=== PATIENT | male | born 1975 | race Caucasian/White ===

== ENCOUNTER 2021-11-23 11:10 | Emergency (ER) | payer OTHER, SELFPAY ==
[2021-11-23 11:13] VITALS: BP 177/114; PULSE 90; RESP 14; TEMP 36.9; O2SAT 100; BMI 28.2
--- NOTE | 2021-11-23 11:17 | ED_ITS ---
HPI - Fall General Chief Complaint: Fall Stated Complaint: Fell off [employer] Truck a day ago Time Seen by Provider: 11/23/21 11:16 Source: patient Mode of arrival: Ambulatory History of Present Illness HPI Narrative: 46-year-old gentleman with a history of C 4 5 and 5 6 surgery in the fall of 2020, partial colectomy with a history of familial polyposis presents complaining of upper neck and head pain. Yesterday he was helping some friends move and was caring a couch down the ramp out of the [employer] truck. He step to the side and got caught between the edge of the garage and the couch with the majority of his pain mid scapula but radiating up toward his neck and reports his head flipping back and forth hitting over the occiput. There was no loss of consciousness any was able to move without difficulty afterward. He took some Tylenol last night and this morning when he woke up the pain was significant enough that he had an episode of emesis and his friends brought him in for further evaluation. He reports no neurologic complaints, dizziness, ataxia, clumsiness with fine motor skills, no significant headache. The majority of his pain is with bilateral trapezius muscle spasm and in upper thoracic area. After the episode of emesis his nausea has significantly improved but is still slightly notable, no diarrhea no abdominal pain. No chest pain, palpitations or dyspnea. Related Data Previous Rx's Medication Instructions Recorded ondansetron 4 mg disintegrating 4 mg PO Q8H PRN #14 tab 11/23/21 tablet oxycodone-acetaminophen 5 mg-325 1 tab PO Q6H PRN #14 tab 11/23/21 mg tablet Allergies Allergy/AdvReac Type Severity Reaction Status Date / Time NSAIDS (Non-Steroidal Allergy Severe Rash Verified 11/23/21 11:18 Anti-Inflamma tramadol [From Ultram] Allergy Severe Anaphylaxis Verified 11/23/21 11:18 promethazine [From Phenergan] Allergy Intermediate Shakiness Verified 11/23/21 11:18 Review of Systems Review of Systems Narrative: Remainder of complete review of systems is otherwise unremarkable except for that included in the HPI. Patient History Medical History (Updated 11/23/21 @ 12:35 by Saritha Moreno MD) Familial polyposis Surgical History (Updated 11/23/21 @ 11:53 by Saritha Moreno MD) H/O cervical spine surgery Social History Smoking Status: Never smoker Smoking Status: Never smoker alcohol intake frequency: 0-2 drinks per day Substance Use Type: does not use Exam Initial Vital Signs Initial Vital Signs: Vital Signs Temperature 98.5 F 11/23/21 11:13 Pulse Rate 90 11/23/21 11:13 Respiratory Rate 14 11/23/21 11:13 Blood Pressure 177/114 H 11/23/21 11:13 Pulse Oximetry 100 11/23/21 11:13 General: Healthy appearing, in no acute distress. Able to give a complete and coherent history. Well-nourished well-developed HEENT: Moist mucous membranes, normal sclera with reactive pupils, Neck: No JVD, bilateral trapezius muscle spasm. Some minor tenderness of the left occipital insert. No signs of basilar skull fracture or abrasions or contusions to the scalp or skull. Respiratory: Lungs are clear to auscultation, no wheezing no rales no rhonchi. Full and symmetrical air movement Cardiac: Regular rate and rhythm no murmurs no bruits Chest: Minor muscle spasm in the inferior portions of the trapezius muscles and infra scapular areas without abrasions or contusions. Abdomen: Soft, nontender, good bowel tones, no flank pain Skin: Warm and dry, no rashes Neurologic: Grossly neurologically intact with no obvious asymmetries or abnormalities Extremities: No trauma, well perfused, he is walking, sitting, moving all with minimal pain Psych: Cooperative, appropriate insight and affect Course Orders Ordered: Discontinued Medications Ondansetron HCl (Ondansetron 4 Mg Odt) 4 mg SL NOW ONE Stop: 11/23/21 11:50 Last Admin: 11/23/21 12:07 Dose: 4 mg Documented by: ERNIE Oxycodone/Acetaminophen (Oxycodone/Acetaminophen 5/325 Tablet) 1 tab PO NOW ONE Stop: 11/23/21 11:50 Last Admin: 11/23/21 12:07 Dose: 1 tab Documented by: ERNIE Vital Signs Vital signs: Vital Signs - 8 hr 11/23/21 11:13 11/23/21 12:33 Temperature 98.5 F Pulse Rate 90 68 Respiratory Rate 14 16 Blood Pressure 177/114 H 170/114 H Pulse Oximetry 100 97 MDM - Fall MDM Narrative Medical decision making narrative: 46-year-old gentleman with minor injury getting caught between a couch and the edge of a garage while moving furniture. He had an episode of emesis this morning but no specific head injury he is not on blood thinners. He does not meet criteria using [place] head CT rules for CT. We did discuss this and wish your decision making opted to not proceed with any CT scanning of his head. The pain along his neck and upper thoracic area is more likely the cause of his emesis today. Again no evidence of fracture in simply soft tissue injury with muscle spasm. Because of his colectomy he has been instructed to avoid ibuprof en. Will discharge home with 10 tablets of Percocet and Zofran as needed. Questions answered he is safe for home discharge Blood pressure was high on arrival and still high at time of discharge after pain had been better controlled. He notes that he did throw up his blood pressure medication this morning, amlodipine. Have asked him to take a 2nd dose once he gets home this afternoon. He is not having any clinical signs or symptoms of hypertensive emergency at time of discharge Discharge Plan Departure Patient Disposition: Home Clinical Impression: Contusion of thoracic spine, Concussion without loss of consciousness, Hypertension Instructions: DI for Concussion, DI for Contusion Activity Restrictions/Additional Instructions: Thank you for coming in today As we talked about, I think that your nausea and vomiting is more from the musculoskeletal pain rather than from the head injury. Currently, I do not think we need to do additional head imaging. If you notice that you are having trouble thinking, your noticing that your increasingly dizzy, your off balance, you have worsening headaches or persistent vomiting you do need to return and we do need to go ahead and do a CT scan. In the meantime, I suspect that the majority of your pain is from the upper part of your spine and is musculoskeletal. These type of injuries tend to hurt worst in the 1st 24-48 hours. Please use Tylenol for moderate pain and Percocet for severe pain. You can use Zofran to help with nausea. If you have new or worsening symptoms please feel free to return to the ER Prescriptions: New ondansetron 4 mg tablet,disintegrating 4 mg PO Q8H PRN (Reason: nausea and vomiting) Qty: 14 0RF oxycodone-acetaminophen 5-325 mg tablet 1 tab PO Q6H PRN (Reason: pain) Qty: 14 0RF
[2021-11-23] MEDS: ONDANSETRON 4 MG ODT SL (12:07)
[2021-11-23] MEDS: OXYCODONE/ACETAMINOPHEN 5/325 TABLET 1 TAB PO (12:07)
[2021-11-23 12:33] VITALS: BP 170/114; PULSE 68; RESP 16; O2SAT 97
== END 2021-11-23 12:55 | disposition home or self-care (01) ==
PROVIDERS: Emergency Provider Emergency Medicine
DX: S20.229A Contusion of unspecified back wall of thorax, initial encounter (principal); S06.0X0A Concussion without loss of consciousness, initial encounter; I10 Essential (primary) hypertension; Z88.5 Allergy status to narcotic agent; X58.XXXA Exposure to other specified factors, initial encounter; Y93.89 Activity, other specified
CPT/HCPCS: 99283